=== PATIENT | female | born 1930 | race Hispanic/Latino ===

== ENCOUNTER 2017-05-02 11:52 | Day surgery (SDC) | payer MEDICARE ==
[~2017-05-02 11:52] MED LIST: AK-Dilate OU ONE; IOPIDINE OU ONE; MYDRIACYL OU ONE
[2017-05-02] MEDS ORDERED: IOPIDINE ONE (12:00)
[2017-05-02] MEDS ORDERED: MYDRIACYL ONE (12:00)
[2017-05-02] MEDS ORDERED: AK-Dilate ONE (12:00)
[2017-05-02] MEDS ORDERED: IOPIDINE OU ONE (12:28)
[2017-05-02] MEDS ORDERED: MYDRIACYL OU ONE (12:28)
[2017-05-02] MEDS ORDERED: AK-Dilate OU ONE (12:28)
[2017-05-02 13:59] VITALS: BP 140/86
== END 2017-05-02 12:55 | disposition home or self-care (01) ==
LOC: OR 11:52
PROVIDERS: ATTEND Ophthalmology
DX: E11.36 Type 2 diabetes mellitus with diabetic cataract (principal); H26.493 Other secondary cataract, bilateral; K21.9 Gastro-esophageal reflux disease without esophagitis; I10 Essential (primary) hypertension; I73.9 Peripheral vascular disease, unspecified; M19.90 Unspecified osteoarthritis, unspecified site; Z86.73 Personal history of transient ischemic attack (TIA), and cerebral infarction without residual deficits
CPT/HCPCS: 82962